=== PATIENT | male | born 1985 | race Caucasian/White ===

== ENCOUNTER 2016-11-07 20:02 | Emergency (ER) | payer OTHER ==
[~2016-11-07] VITALS: Ht 182.8 cm; Wt 104.3 kg
[~2016-11-07 20:02] MED LIST: CEPHALEXIN500 M1 PO; KEFLEX500 MG PO; LOMOTIL 0.025 M1 TA1 PO; MOTRIN800 MG PO; PHENERGAN25 M1 PO
[2016-11-07] MEDS ORDERED: NAPROSYN500 MG PO (21:32)
== END 2016-11-07 21:35 | disposition home or self-care (01) ==
LOC: ED 20:02
DX: S90.32XA Contusion of left foot, initial encounter (principal); X58.XXXA Exposure to other specified factors, initial encounter; Y93.9 Activity, unspecified; Y92.9 Unspecified place or not applicable; Y99.9 Unspecified external cause status

== ENCOUNTER 2017-05-25 22:02 | Emergency (ER) | payer OTHER ==
[~2017-05-25] VITALS: Ht 182.8 cm; Wt 108.9 kg
[~2017-05-25 22:02] MED LIST changes: +NAPROSYN500 MG PO
[2017-05-25] MEDS ORDERED: NAPROSYN500 MG PO (23:31)
== END 2017-05-26 00:05 | disposition home or self-care (01) ==
LOC: ED 22:02
DX: S60.221A Contusion of right hand, initial encounter (principal); S60.211A Contusion of right wrist, initial encounter; Z98.890 Other specified postprocedural states; W22.8XXA Striking against or struck by other objects, initial encounter; Y93.89 Activity, other specified; Y92.89 Other specified places as the place of occurrence of the external cause; Y99.9 Unspecified external cause status

== ENCOUNTER 2018-01-02 20:25 | Emergency (ER) | payer OTHER ==
[~2018-01-02] VITALS: Ht 182.8 cm; Wt 108.9 kg
[2018-01-02] MEDS ORDERED: Motrin,Rufen800 MG PO (22:17)
== END 2018-01-02 22:25 | disposition home or self-care (01) ==
LOC: ED 20:25
DX: M71.562 Other bursitis, not elsewhere classified, left knee (principal)

== ENCOUNTER 2018-03-07 20:57 | Emergency (ER) | payer SELFPAY ==
[~2018-03-07] VITALS: Ht 182.8 cm; Wt 106.6 kg
[~2018-03-07 20:57] MED LIST changes: +Motrin,Rufen800 MG PO
[2018-03-07] MEDS ORDERED: CEPHALEXIN500 M1 PO (22:05)
[2018-03-07] MEDS ORDERED: SEPTDS PO (22:05)
[2018-03-07] MEDS ORDERED: Motrin,Rufen800 MG PO (22:05)
== END 2018-03-07 22:12 | disposition home or self-care (01) ==
LOC: ED 20:57
DX: L02.214 Cutaneous abscess of groin (principal); F17.200 Nicotine dependence, unspecified, uncomplicated; Z79.1 Long term (current) use of non-steroidal anti-inflammatories (NSAID)

== ENCOUNTER 2020-03-20 22:08 | Inpatient (IN) | payer BC ==
[~2020-03-20] VITALS: Ht 182.8 cm; Wt 116.6 kg
[~2020-03-20 22:08] MED LIST changes: +SEPTDS PO
[2020-03-20 22:42] VITALS: BP 172/118
[2020-03-20 23:32] LABS: BASO # 0.1 10*3/uL (0.0-0.1); BASO % 0.4 % (0.0-1.0); EOS # 0.1 10*3/uL (0.0-0.4); EOS % 0.6 % (1.0-4.0); LYMPH % 19.9 % (27.0-41.0); MEAN CORPUSCULAR HGB 29.5 pg (27.0-31.0); MEAN CORPUSCULAR HGB CONC 35.1 g/dl (33.0-37.0); MEAN PLATELET VOLUME 9.5 fl (9.6-12.3); MONO # 1.3 10*3/uL (0.1-1.0); MONO % 8.2 % (3.0-9.0); NEUT # 10.7 10*3/uL (2.3-7.9); NEUT % 70.4 % (47.0-73.0); PLATELET COUNT AUTOMATED 280 10*3/uL (130-400); RED BLOOD COUNT 5.36 10*6/uL (4.50-5.90); RED CELL DISTRI WIDTH 11.9 % (0-14.5); WHITE BLOOD COUNT 15.2 10*3/uL (4.8-10.8)
--- NOTE | 2020-03-20 23:41 | NUR ---
PT NOTES MEDICATION HAS HELPED KNEE PAIN, WELL NAUSEA.
[2020-03-20 23:49] LABS: ALBUMIN 3.9 gm/dl (3.1-4.5); ALKALINE PHOSPHATASE 79 U/L (45-117); BUN 15 mg/dl (7-24); CHLORIDE 110 mmol/L (98-107); CREATININE 1.28 mg/dL (0.70-1.30); POTASSIUM 3.8 mmol/L (3.5-5.1); SGOT/AST 31 IU/L (3-35); SGPT/ALT 80 U/L (12-78); SODIUM 141 mmol/L (136-145); TOTAL PROTEIN 7.4 gm/dL (6.4-8.2)
--- NOTE | 2020-03-21 01:14 | NUR ---
PT DENIES WOUNDS.
[2020-03-21 01:40] VITALS: BP 158/102
--- NOTE | 2020-03-21 01:40 | NUR ---
A 34, admitted to 5E, under the services of ANALY Montero DO with a diagnosis of SEPTIC JOIN L KNEE. Chief complaint is L KNEE PAIN. Patient arrived via stretcher from ER. Monitor applied. Initial assessment completed. Vital signs taken and recorded. ANALY MONTERO DO notified of admission to the unit. Orders received. See assessment for past medical history, medications and allergies. Patient and/or family oriented to unit. [facility] visitation policy reviewed. Clothing/patient valuable form completed. ANKITA CALVIN
[2020-03-21] MEDS ORDERED: ALLOPURINOL300 MG PO (01:51)
--- NOTE | 2020-03-21 02:12 | NUR ---
SPOKE TO REGARDING ADMISSION ORDERS. NEW ORDERS RECEIVED. AWARE OF BP 158/102 MANUALLY. INSTRUCTED TO MONITOR FOR NOW BP DECREASED WITH MEDICATION ADMINISTRATION.
--- NOTE | 2020-03-21 02:49 | NUR ---
IV MORPHINE GIVEN PER PRN ORDER FOR C/O L KNEE PAIN RATED 5/10. WILL MONITOR. CALL LIGHT IN REACH.
[2020-03-21 08:00] VITALS: BP 148/90
--- NOTE | 2020-03-21 08:02 | NUR ---
PHYSICAL THERAPY Pt admitted with L knee pain cellulitis vs septic knee pt is for Ortho Consult. Will follow as appropriately for orders. Sherine George PT
[2020-03-21 12:00] VITALS: BP 135/63
--- NOTE | 2020-03-21 12:06 | NUR ---
Nursing screen and chart review completed. Patient admitted with septic knee and awaiting orthopedic consult. Patient may benefit from OT evaluation if he has difficulties with transfers in ADLs and ADLs. Thank you. Lauren Ruffin OTR/Elaine
--- NOTE | 2020-03-21 15:03 | NUR ---
ATTEMPTED TO TWICE CALL DR. ERICKSON'S OFFICE REGARDING CONSULT WITH NO ANSWER AFTER REMAINING ON HOLD FOR A LENGTHY PERIOD.
[2020-03-21 16:00] VITALS: BP 144/90
--- NOTE | 2020-03-21 16:32 | NUR ---
DR. ERICKSON'S ANSWERING SERVICE NOTIFIED OF CONSULT.
--- NOTE | 2020-03-21 16:38 | NUR ---
DR. ERICKSON NOTIFED OF CONSULT. NEW ORDERS RECIEVED.
--- NOTE | 2020-03-21 19:50 | NUR ---
EARLIER NORCO EFFECTIVE PER PT. WILL CONTINUE TO MONITOR. CALL LIGHT IN REACH.
[2020-03-21 20:00] VITALS: BP 159/100
--- NOTE | 2020-03-21 20:33 | NUR ---
PT STATES NORCO HAS BEEN MOST EFFECTIVE FOR PAIN MANAGEMENT. NOTIFIED OF PATIENT'S PAIN RELIEVED FROM NORCO. WILL REVIEW CHART AND PLACE ORDERS NECESSARY.
--- NOTE | 2020-03-21 21:31 | NUR ---
IV TORADOL GIVEN FOR C/O PAIN IN L KNEE RATED 6/10. WILL MONITOR. CALL LIGHT IN REACH.
--- NOTE | 2020-03-21 22:30 | NUR ---
PT NOW RATING PAIN IN L KNEE 08/13. STATES EARLIER TORADOL HELPED SOME. DENIES ANY OTHER NEEDS AT THIS TIME. VERBALIZES UNDERSTANDING OF K-PAD USE (20 MINUTES ON Q2H). WILL MONITOR.
[2020-03-21 23:32] VITALS: BP 141/87
[2020-03-22] VITALS (7 sets, daily range): BP systolic 142–178; BP diastolic 86–104
--- NOTE | 2020-03-22 01:10 | NUR ---
PT REQUESTED AND RECEIVED PO NORCO PER PRN ORDER FOR C/O PAIN IN L KNEE RATED 6/10. WILL MONITOR. CALL LIGHT IN REACH.
--- NOTE | 2020-03-22 02:05 | NUR ---
EARLIER NORCO APPEARS EFFECTIVE. PT ASLEEP IN BED. NO S/S OF DISTRESS NOTED. WILL MONITOR. CALL LIGHT IN REACH.
--- NOTE | 2020-03-22 05:21 | NUR ---
IV TORADOL GIVEN FOR C/O PAIN IN L KNEE RATED 6/10. WILL MONITOR EFFECTIVENESS. CALL LIGHT IN REACH. BLANKETS PROVIDED PER REQUEST.
--- NOTE | 2020-03-22 08:03 | NUR ---
PRN NORCO WAS GIVEN FOR A PAIN LEVEL OF 6/10 IN THE LEFT KNEE. WILL REASSESS EFFECTIVENESS.
[2020-03-22 08:13] LABS: BASO % 0.4 % (0.0-1.0); EOS # 0.2 10*3/uL (0.0-0.4); EOS % 2.4 % (1.0-4.0); HEMATOCRIT 42.1 % (42.0-52.0); LYMPH # 2.4 10*3/uL (1.3-4.4); LYMPH % 25.5 % (27.0-41.0); MEAN CELL VOLUME 84.5 fl (80.0-94.0); MEAN CORPUSCULAR HGB 29.3 pg (27.0-31.0); MEAN CORPUSCULAR HGB CONC 34.7 g/dl (33.0-37.0); MEAN PLATELET VOLUME 9.5 fl (9.6-12.3); MONO # 0.9 10*3/uL (0.1-1.0); MONO % 9.5 % (3.0-9.0); NEUT # 5.7 10*3/uL (2.3-7.9); NEUT % 61.9 % (47.0-73.0); PLATELET COUNT AUTOMATED 226 10*3/uL (130-400); RED BLOOD COUNT 4.98 10*6/uL (4.50-5.90); RED CELL DISTRI WIDTH 11.9 % (0-14.5); WHITE BLOOD COUNT 9.3 10*3/uL (4.8-10.8)
--- NOTE | 2020-03-22 08:30 | NUR ---
CALLED AND NOTIFIED [facility] OF 9.9. THEY STATED IT WAS OKAY TO GIVE AM DOSE OF [facility].
--- NOTE | 2020-03-22 09:00 | NUR ---
Service Inspector in to talk to patient. Patient states lives at home with his fiance. There are 0 steps in the home. There are 2 outside steps. Physician: Dr. Dom Gurrola Pharmacy: [facility] Home health services: none Patient's level of ADLs: INDEPENDENT Patient has working utilities: yes DME: none Follow-up physician's appointment after d/c: will be made by the hospitalist nurse director upon discharge Does patient want to access PORTAL?: no Discharge plan discussed with patient. He lives at home with his fiance. He is independent in his ADLs and ambulation. Discussed home health care services and he declines. CM will continue to follow for any discharge planning needs. When medically stable he will be discharged to home. He states his fiance will provide transportation on discharge. ERICA LEON
--- NOTE | 2020-03-22 09:03 | NUR ---
PRN NORCO WAS EFFECTIVE. PT IS RESTING COMFORTABLY WITH NO SIGNS OF DISTRESS.
[2020-03-22 11:45] LABS: BODY FLUID WBC 12864 /uL
[2020-03-22 12:03] LABS: BF LYMPHOCYTES 2 %; BF MONOCYTES 18 %; BF NEUTROPHILS 80 %
--- NOTE | 2020-03-22 14:59 | NUR ---
NOTIFIED DR. GONZALEZ OF PT'S INCREASED DIARRHEA. SEE NEW ORDERS. DR. GONZALEZ WAS ALSO NOTIFIED THAT PT'S LEFT KNEE LOOKED MORE SWOLLEN TO THE PATIENT. I NOTIFIED HIM THAT HIS KNEE LOOKS ABOUT THE SAME IT DID THIS MORNING. WILL CONTINUE TO MONITOR PATIENT.
--- NOTE | 2020-03-22 15:10 | NUR ---
PRN ZOFRAN AND NORCO WERE GIVEN FOR NAUSEA AND PAIN. WILL REASSESS EFFECTIVENESS.
--- NOTE | 2020-03-22 16:10 | NUR ---
PRN NORCO AND ZOFRAN WERE EFFECTIVE. PT IS RESTING COMFORTABLY WITH NO SIGNS OF DISTRESS.
--- NOTE | 2020-03-22 21:02 | NUR ---
PO NORCO GIVEN FOR C/O L KNEE PAIN RATED 7/10. WILL MONITOR EFFECTIVENESS. PT BP ELEVATED AT 166/102 MANUALLY. WILL REASSESS AFTER PAIN MEDICATION HAS BEEN GIVEN TIME TO TAKE EFFECT. PT EDUCATED ABOUT CALL LIGHT USE AND S/S TO NOTIFY RN. WILL MONITOR. CALL LIGHT IN REACH.
--- NOTE | 2020-03-22 22:00 | NUR ---
EARLIER NORCO HELPED SOME, BUT PT STILL RATING PAIN 6/10 IN L KNEE/L LOWER LEG. SWELLING NOTED TO L KNEE. ROUND BALL-SHAPED KNOT NOTED BELOW L KNEE. BANDAID REMAINS TO ASPIRATION SITE ABOVE L KNEE. IV TORADOL GIVEN FOR C/O PAIN RATED 6/10. PO ALLOPURINOL ALSO GIVEN PER PRN ORDER FOR POSSIBLE GOUT FLARE UP. URIC ACID 7.8.
--- NOTE | 2020-03-22 22:17 | NUR ---
PT'S BP REMAINS 158/104 MANUALLY FOLLOWING PAIN MEDICATION. NOTIFIED. ALSO MADE AWARE OF ASPIRATION DONE TODAY AND BALL SHAPED KNOT NOTED BELOW L KNEE. ALSO DISCUSSED HX OF MARLINE-SCHLATTER'S DISEASE. DISCUSSED BP TRENDS AND BP NORMALLY ELEVATED W/ PAIN. AWARE OF PT'S C/O CONSTANT PAIN NOW RADIATING DOWN L LOWER LEG. NEW ORDER RECEIVED FOR MORPHINE X 1 DOSE NOW.
--- NOTE | 2020-03-22 22:45 | NUR ---
PT STATES EARLIER TORADOL HELPED SOME, BUT STILL C/O PAIN. BP REMAINS ELEVATED. WILL NOTIFY
--- NOTE | 2020-03-22 22:59 | NUR ---
IV MORPHINE GIVEN PER ONE TIME ORDER FOR C/O L KNEE PAIN RATED 6/10. BP REMAINS ELEVATED AT THIS TIME. 178/102 MANUALLY. WILL REASSESS AFTER MORPHINE HAS TIME TO TAKE EFFECT.
--- NOTE | 2020-03-22 23:45 | NUR ---
EARLIER MORPHINE EFFECTIVE PER PT. WILL MONITOR. CALL LIGHT IN REACH.
[2020-03-23] VITALS: BP 159/96
[2020-03-23 00:10] VITALS: BP 152/88
--- NOTE | 2020-03-23 01:00 | NUR ---
PO NORCO ADMINISTERED PER PRN ORDER FOR C/O PAIN IN L KNEE/L LOWER LEG RATED 4/10. WILL MONITOR EFFECTIVENESS. CALL LIGHT IN REACH.
--- NOTE | 2020-03-23 01:54 | NUR ---
EARLIER NORCO EFFECTIVE PER PT. WILL MONITOR. CALL LIGHT IN REACH.
--- NOTE | 2020-03-23 06:25 | NUR ---
PO NORCO AND IV TORADOL GIVEN FOR PT C/O PAIN IN L KNEE RATED 7/10 AND SWELLING. AREA ABOVE KNEE APPEARS MORE SWOLLEN THIS MORNING. PT STATES LEG IN L LOWER LEG HAS RESOLVED. FRESH ICE PACK PROVIDED. WILL MONITOR EFFECTIVENESS. CALL LIGHT IN REACH.
[2020-03-23 06:44] LABS: BASO % 0.5 % (0.0-1.0); EOS # 0.2 10*3/uL (0.0-0.4); EOS % 2.8 % (1.0-4.0); LYMPH # 2.3 10*3/uL (1.3-4.4); LYMPH % 28.2 % (27.0-41.0); MEAN CELL VOLUME 84.6 fl (80.0-94.0); MEAN CORPUSCULAR HGB 29.3 pg (27.0-31.0); MEAN CORPUSCULAR HGB CONC 34.7 g/dl (33.0-37.0); MEAN PLATELET VOLUME 9.8 fl (9.6-12.3); MONO # 0.6 10*3/uL (0.1-1.0); MONO % 7.6 % (3.0-9.0); NEUT # 4.9 10*3/uL (2.3-7.9); NEUT % 60.5 % (47.0-73.0); PLATELET COUNT AUTOMATED 233 10*3/uL (130-400); RED BLOOD COUNT 5.08 10*6/uL (4.50-5.90); RED CELL DISTRI WIDTH 11.9 % (0-14.5); WHITE BLOOD COUNT 8.2 10*3/uL (4.8-10.8)
[2020-03-23 06:56] LABS: BUN 14 mg/dl (7-24); CREATININE 1.19 mg/dL (0.70-1.30)
[2020-03-23 08:00] VITALS: BP 153/101
--- NOTE | 2020-03-23 09:00 | NUR ---
CM in to see patient. No new needs or request at this time. Discussed home health care services and he declines. CM will continue to follow for any discharge planning needs. When medically stable he will be discharged to home.
--- NOTE | 2020-03-23 09:46 | NUR ---
SPOKE WITH DR ERICKSON. SHE STATES PT OK FOR DISCHARGE PER ID, NO ANTIBIOTICS ARE NEEDED.
[2020-03-23] MEDS ORDERED: ALLOPURINOL300 MG PO (11:23)
--- NOTE | 2020-03-23 12:07 | NUR ---
PT REQUESTED AND WAS MEDICATED WITH NORCO AND TORADOL IV FOR C/O LEFT KNEE PAIN. CALL LIGHT IN REACH. WILL MONITOR
--- NOTE | 2020-03-23 12:40 | NUR ---
MEDICATIONS EFFECTIVE PER PT.
--- NOTE | 2020-03-23 12:45 | NUR ---
Discharge instructions reviewed with patient/family. Patient receptive and verbalizes understanding. Follow-up care arranged. Written instructions given to patient/family. LEVON RODRIGUEZ
[2020-03-24 08:08] LABS: ANTI-STREPTOLYSIN O AB 132.9 IU/mL (0.0-200.0); RHEUMATOID ARTHRITIS FACTOR <10.0 IU/mL (0.0-13.9)
[2020-03-24 13:09] LABS: ANTI-DSDNA ANTIBODIES 1 IU/mL (0-9)
== END 2020-03-23 12:45 | disposition home or self-care (01) | DRG 872 ==
LOC: ED 22:08 → 5E 03-21 00:47 → EDHOLD 03-21 00:47 → 5E 03-21 01:00
PROVIDERS: Hospitalist; Internal Medicine; Orthopaedic Surgery; Physician Assistant; ADMIT Family Medicine; ATTEND Family Medicine
PROC: 0S9D3ZZ Drainage of Left Knee Joint, Percutaneous Approach (ICD-10-PCS; principal; 2020-03-22)
DX: A41.9 Sepsis, unspecified organism (principal); L03.116 Cellulitis of left lower limb; M00.9 Pyogenic arthritis, unspecified; M92.523 Juvenile osteochondrosis of tibia tubercle, bilateral; M92.8 Other specified juvenile osteochondrosis; M1A.9XX0 Chronic gout, unspecified, without tophus (tophi); E87.8 Other disorders of electrolyte and fluid balance, not elsewhere classified; E83.51 Hypocalcemia; F14.10 Cocaine abuse, uncomplicated; F12.90 Cannabis use, unspecified, uncomplicated; R79.82 Elevated C-reactive protein (CRP); Z78.9 Other specified health status; R74.01 Elevation of levels of liver transaminase levels; M71.9 Bursopathy, unspecified; Z79.899 Other long term (current) drug therapy

== ENCOUNTER 2020-04-17 12:01 | Emergency (ER) | payer BC ==
[~2020-04-17] VITALS: Ht 182.8 cm; Wt 113.4 kg
[~2020-04-17 12:01] MED LIST changes: +ALLOPURINOL300 MG PO
[2020-04-17 13:07] LABS: BASO % 0.3 % (0.0-1.0); EOS # 0.1 10*3/uL (0.0-0.4); EOS % 0.8 % (1.0-4.0); HEMATOCRIT 44.1 % (42.0-52.0); LYMPH # 1.6 10*3/uL (1.3-4.4); MEAN CELL VOLUME 81.8 fl (80.0-94.0); MEAN CORPUSCULAR HGB 28.9 pg (27.0-31.0); MEAN CORPUSCULAR HGB CONC 35.4 g/dl (33.0-37.0); MEAN PLATELET VOLUME 9.2 fl (9.6-12.3); MONO # 0.9 10*3/uL (0.1-1.0); MONO % 6.5 % (3.0-9.0); NEUT # 10.6 10*3/uL (2.3-7.9); NEUT % 80.2 % (47.0-73.0); PLATELET COUNT AUTOMATED 263 10*3/uL (130-400); RED BLOOD COUNT 5.39 10*6/uL (4.50-5.90); RED CELL DISTRI WIDTH 11.9 % (0-14.5); WHITE BLOOD COUNT 13.2 10*3/uL (4.8-10.8)
[2020-04-17 13:28] LABS: ALBUMIN 4.1 gm/dl (3.1-4.5); ALKALINE PHOSPHATASE 85 U/L (45-117); BUN 12 mg/dl (7-24); CHLORIDE 109 mmol/L (98-107); CREATININE 1.14 mg/dL (0.70-1.30); POTASSIUM 4.2 mmol/L (3.5-5.1); SGOT/AST 32 IU/L (3-35); SGPT/ALT 80 U/L (12-78); SODIUM 139 mmol/L (136-145); TOTAL PROTEIN 7.2 gm/dL (6.4-8.2); URIC ACID 5.4 mg/dL (3.5-7.2)
== END 2020-04-17 15:14 | disposition home or self-care (01) ==
LOC: ED 12:01
PROVIDERS: Nurse Practitioner Family
DX: M25.462 Effusion, left knee (principal)

== ENCOUNTER → 2020-05-26 | Outpatient (CLI) | payer BC | END | disposition home or self-care (01) | LOC: COVID19 12:37 | PROVIDERS: ATTEND Internal Medicine | DX: U07.1 COVID-19 (principal) ==

== ENCOUNTER → 2020-06-22 | Outpatient (CLI) | payer BC ==
[2020-06-22 13:23] LABS: BASO % 0.2 % (0.0-1.0); HEMATOCRIT 46.7 % (42.0-52.0); LYMPH # 1.4 10*3/uL (1.3-4.4); LYMPH % 12.3 % (27.0-41.0); MEAN CELL VOLUME 82.9 fl (80.0-94.0); MEAN CORPUSCULAR HGB CONC 34.9 g/dl (33.0-37.0); MEAN PLATELET VOLUME 9.5 fl (9.6-12.3); MONO # 0.8 10*3/uL (0.1-1.0); MONO % 6.7 % (3.0-9.0); NEUT # 9.1 10*3/uL (2.3-7.9); NEUT % 80.5 % (47.0-73.0); PLATELET COUNT AUTOMATED 323 10*3/uL (130-400); RED BLOOD COUNT 5.63 10*6/uL (4.50-5.90); RED CELL DISTRI WIDTH 12.8 % (0-14.5); WHITE BLOOD COUNT 11.2 10*3/uL (4.8-10.8)
[2020-06-22 13:54] LABS: FERRITIN 400.2 ng/mL (22.0-322.0)
[2020-06-22 14:00] LABS: ALKALINE PHOSPHATASE 88 U/L (45-117); BUN 16 mg/dl (7-24); CHLORIDE 105 mmol/L (98-107); CREATININE 1.04 mg/dL (0.70-1.30); POTASSIUM 3.8 mmol/L (3.5-5.1); SGOT/AST 19 IU/L (3-35); SGPT/ALT 76 U/L (12-78); SODIUM 137 mmol/L (136-145); TOTAL PROTEIN 8.1 gm/dL (6.4-8.2)
[2020-06-22 14:09] LABS: THYROID STIM HORMONE (HS) 0.415 uIU/ml (0.358-4.75)
[2020-06-23 08:08] LABS: RHEUMATOID ARTHRITIS FACTOR <10.0 IU/mL (0.0-13.9)
[2020-06-23 14:10] LABS: SJOGREN ANTI-SS-A <0.2 AI (0.0-0.9); SJOREN AB, ANTI-SS-B <0.2 AI (0.0-0.9)
[2020-06-23 15:08] LABS: ANTI-SMOOTH MUSCLE ANTIBODY 18 Units (0-19)
[2020-06-24 21:06] LABS: CMV QNT Negative (Negative)
[2020-06-25 00:06] LABS: CCP ANTIBODIES IGG/IGA 14 units (0-19)
== END | disposition home or self-care (01) ==
LOC: LAB 12:52
PROVIDERS: ATTEND Orthopaedic Surgery
DX: M19.90 Unspecified osteoarthritis, unspecified site (principal)

== ENCOUNTER 2022-12-25 15:36 | Inpatient (IN) | payer MEDICAID ==
[~2022-12-25] VITALS: Ht 182.9 cm; Wt 95.9 kg
[2022-12-25 16:00] VITALS: BP 152/107
[2022-12-25 16:22] LABS: BASO # 0.1 10*3/uL (0.0-0.1); BASO % 0.5 % (0.0-1.0); EOS # 0.3 10*3/uL (0.0-0.4); EOS % 3.1 % (1.0-4.0); HEMATOCRIT 43.8 % (42.0-52.0); LYMPH # 2.7 10*3/uL (1.3-4.4); LYMPH % 27.1 % (27.0-41.0); MEAN CELL VOLUME 81.9 fl (80.0-94.0); MEAN CORPUSCULAR HGB 29.9 pg (27.0-31.0); MEAN CORPUSCULAR HGB CONC 36.5 g/dl (33.0-37.0); MEAN PLATELET VOLUME 9.1 fl (9.6-12.3); MONO # 0.8 10*3/uL (0.1-1.0); MONO % 8.1 % (3.0-9.0); NEUT # 6.1 10*3/uL (2.3-7.9); PLATELET COUNT AUTOMATED 320 10*3/uL (130-400); RED BLOOD COUNT 5.35 10*6/uL (4.50-5.90); RED CELL DISTRI WIDTH 11.9 % (0-14.5)
[2022-12-25 16:32] LABS: INTERNATIONAL NORM RATIO 1.1 (2.0-3.5)
[2022-12-25 16:49] LABS: ALKALINE PHOSPHATASE 73 U/L (46-116); BUN 11 mg/dl (9-23); CHLORIDE 110 mmol/L (98-107); LIPASE 27 U/L (12-53); POTASSIUM 3.8 mmol/L (3.4-5.1); SGPT/ALT 18 U/L (10-49); TOTAL PROTEIN 7.5 gm/dL (6.0-8.0)
[2022-12-25 16:57] LABS: ETHYL ALCOHOL < 3.0 mg/dl (<3)
[2022-12-25 20:00] VITALS: BP 166/102
[2022-12-26 04:00] VITALS: BP 124/89
[2022-12-26 05:46] LABS: BUN 12 mg/dl (9-23); CHLORIDE 108 mmol/L (98-107); POTASSIUM 3.6 mmol/L (3.4-5.1)
[2022-12-26 08:00] VITALS: BP 144/90
[2022-12-26 12:00] VITALS: BP 141/89
[2022-12-26 16:00] VITALS: BP 141/89
[2022-12-27] VITALS: BP 140/81
[2022-12-27 06:52] LABS: BUN 14 mg/dl (9-23); CHLORIDE 107 mmol/L (98-107); POTASSIUM 3.7 mmol/L (3.4-5.1)
[2022-12-27 12:00] VITALS: BP 146/98
[2022-12-27 16:00] VITALS: BP 160/96
[2022-12-27 17:03] LABS: URINE AMPHETAMINES Negative (1000ng/ml); URINE BARBITURATES Negative (200ng/ml); URINE BENZODIAZEPINES Negative (200ng/ml); URINE CANNABINOIDS (THC) Negative (50ng/ml); URINE COCAINE Positive (300ng/ml); URINE METHADONE Negative (300ng/ml); URINE OPIATES Negative (300ng/ml); URINE PHENCYCLIDINE Negative (25ng/ml)
[2022-12-27 20:00] VITALS: BP 146/78
[2022-12-28] VITALS: BP 112/56
[2022-12-28 07:28] LABS: BASO # 0.1 10*3/uL (0.0-0.1); BASO % 0.7 % (0.0-1.0); EOS # 0.1 10*3/uL (0.0-0.4); EOS % 1.7 % (1.0-4.0); HEMATOCRIT 42.9 % (42.0-52.0); LYMPH # 2.8 10*3/uL (1.3-4.4); LYMPH % 36.1 % (27.0-41.0); MEAN CELL VOLUME 82.5 fl (80.0-94.0); MEAN CORPUSCULAR HGB 29.2 pg (27.0-31.0); MEAN CORPUSCULAR HGB CONC 35.4 g/dl (33.0-37.0); MEAN PLATELET VOLUME 9.5 fl (9.6-12.3); MONO # 0.5 10*3/uL (0.1-1.0); MONO % 6.9 % (3.0-9.0); NEUT # 4.2 10*3/uL (2.3-7.9); NEUT % 54.3 % (47.0-73.0); PLATELET COUNT AUTOMATED 271 10*3/uL (130-400); RED CELL DISTRI WIDTH 11.9 % (0-14.5); WHITE BLOOD COUNT 7.7 10*3/uL (4.8-10.8)
[2022-12-28 08:00] VITALS: BP 105/57
[2022-12-28 08:00] LABS: ALKALINE PHOSPHATASE 63 U/L (46-116); BUN 15 mg/dl (9-23); CHLORIDE 105 mmol/L (98-107); POTASSIUM 3.6 mmol/L (3.4-5.1); SGPT/ALT 14 U/L (10-49); TOTAL PROTEIN 6.6 gm/dL (6.0-8.0)
[2022-12-28 12:00] VITALS: BP 124/82
== END 2022-12-28 11:45 | disposition home or self-care (01) | DRG 773 ==
LOC: ICCU 15:36 → 4E 12-27 07:13
PROVIDERS: Student in an Organized Health Care Education/Training Program; ADMIT Internal Medicine; ATTEND Internal Medicine
DX: F11.93 Opioid use, unspecified with withdrawal (principal); I10 Essential (primary) hypertension; M10.9 Gout, unspecified; F14.10 Cocaine abuse, uncomplicated; E87.8 Other disorders of electrolyte and fluid balance, not elsewhere classified; R73.9 Hyperglycemia, unspecified; F17.210 Nicotine dependence, cigarettes, uncomplicated

== ENCOUNTER → 2023-05-21 | Outpatient (CLI) | payer OTHER ==
[2023-05-21 15:47] LABS: BASO % 0.4 % (0.0-1.0); EOS # 0.2 10*3/uL (0.0-0.4); EOS % 2.5 % (1.0-4.0); HEMATOCRIT 43.7 % (42.0-52.0); LYMPH # 2.4 10*3/uL (1.3-4.4); LYMPH % 31.5 % (27.0-41.0); MEAN CELL VOLUME 84.5 fl (80.0-94.0); MEAN CORPUSCULAR HGB 28.8 pg (27.0-31.0); MEAN CORPUSCULAR HGB CONC 34.1 g/dl (33.0-37.0); MEAN PLATELET VOLUME 9.3 fl (9.6-12.3); MONO # 0.6 10*3/uL (0.1-1.0); MONO % 7.7 % (3.0-9.0); NEUT # 4.3 10*3/uL (2.3-7.9); NEUT % 57.6 % (47.0-73.0); PLATELET COUNT AUTOMATED 264 10*3/uL (130-400); RED BLOOD COUNT 5.17 10*6/uL (4.50-5.90); RED CELL DISTRI WIDTH 12.1 % (0-14.5); WHITE BLOOD COUNT 7.5 10*3/uL (4.8-10.8)
[2023-05-21 16:18] LABS: ALKALINE PHOSPHATASE 73 U/L (46-116); BUN 10 mg/dl (9-23); CHLORIDE 105 mmol/L (98-107); POTASSIUM 3.9 mmol/L (3.4-5.1); SGPT/ALT 49 U/L (5-49)
[2023-05-22 06:09] LABS: HBSAG Negative (Negative); HEP B CORE AB, IGM Negative (Negative); HEPATITIS C ANTIBODY Non Reactive (Non Reactive)
== END | disposition home or self-care (01) ==
LOC: LAB 15:27
PROVIDERS: ATTEND Family Medicine Addiction Medicine
DX: F11.20 Opioid dependence, uncomplicated (principal)

== ENCOUNTER 2023-10-18 22:16 | Emergency (ER) | payer OTHER ==
[~2023-10-18] VITALS: Ht 182.8 cm; Wt 104.3 kg
[2023-10-18] MEDS ORDERED: LORazepam 1 MG TAB PO ONE (23:25)
== END 2023-10-18 23:59 | disposition home or self-care (01) ==
LOC: ED 22:16
DX: M79.10 Myalgia, unspecified site (principal); F41.9 Anxiety disorder, unspecified; T40.415A Adverse effect of fentanyl or fentanyl analogs, initial encounter; Z98.890 Other specified postprocedural states; Y92.89 Other specified places as the place of occurrence of the external cause

== ENCOUNTER 2023-11-16 13:50 | Emergency (ER) | payer OTHER ==
[~2023-11-16] VITALS: Ht 182.8 cm; Wt 104.3 kg
[2023-11-16] MEDS ORDERED: FLUORESCEIN SODIUM 1 MG STRIP OPH ONE (15:05)
[2023-11-16] MEDS ORDERED: Tetracaine Hydrochloride 0.5% 4 ML BOT OPH ONE (15:05)
[2023-11-16] MEDS ORDERED: OFLOXACIN 10 ML10 M2 OD (15:18)
[2023-11-16] MEDS ORDERED: OFLOXACIN 0.3% 5 ML BOTTLE OPH ONE (15:20)
== END 2023-11-16 15:33 | disposition home or self-care (01) ==
LOC: ED 13:50
DX: H18.821 Corneal disorder due to contact lens, right eye (principal); I10 Essential (primary) hypertension; F41.9 Anxiety disorder, unspecified; F14.10 Cocaine abuse, uncomplicated; M10.9 Gout, unspecified; M19.90 Unspecified osteoarthritis, unspecified site; F12.90 Cannabis use, unspecified, uncomplicated; F11.10 Opioid abuse, uncomplicated; F17.200 Nicotine dependence, unspecified, uncomplicated

== ENCOUNTER 2023-11-18 12:09 | Emergency (ER) | payer OTHER ==
[~2023-11-18] VITALS: Ht 182.8 cm; Wt 104.3 kg
[~2023-11-18 12:09] MED LIST changes: +OFLOXACIN 10 ML10 M2 OD
[2023-11-18] MEDS ORDERED: Metoclopramide Hydrochloride 10 MG/2 ML AMP IV ONE (12:25)
[2023-11-18] MEDS ORDERED: Ketorolac Tromethamine 15 MG/ML VIAL IV ONE (12:25)
[2023-11-18] MEDS ORDERED: diphenhydrAMINE hydrochloride 50 MG/ML VIAL IV ONE (12:25)
[2023-11-18] MEDS ORDERED: Lactated Ringer's Solution 1,000 ML IV SCH (12:25)
[2023-11-18 12:38] LABS: BASO % 0.3 % (0.0-1.0); EOS # 0.1 10*3/uL (0.0-0.4); EOS % 0.9 % (1.0-4.0); HEMATOCRIT 45.5 % (42.0-52.0); LYMPH % 16.2 % (27.0-41.0); MEAN CELL VOLUME 83.6 fl (80.0-94.0); MEAN CORPUSCULAR HGB 29.6 pg (27.0-31.0); MEAN CORPUSCULAR HGB CONC 35.4 g/dl (33.0-37.0); MEAN PLATELET VOLUME 9.3 fl (9.6-12.3); MONO # 0.6 10*3/uL (0.1-1.0); MONO % 4.6 % (3.0-9.0); NEUT # 9.7 10*3/uL (2.3-7.9); NEUT % 77.8 % (47.0-73.0); PLATELET COUNT AUTOMATED 311 10*3/uL (130-400); RED BLOOD COUNT 5.44 10*6/uL (4.50-5.90); WHITE BLOOD COUNT 12.5 10*3/uL (4.8-10.8)
[2023-11-18 13:00] LABS: ALKALINE PHOSPHATASE 86 U/L (46-116); BUN 12 mg/dl (9-23); CHLORIDE 108 mmol/L (98-107); LIPASE 22 U/L (12-53); POTASSIUM 3.7 mmol/L (3.4-5.1); SGPT/ALT 45 U/L (5-49); TOTAL PROTEIN 7.5 gm/dL (6.0-8.0)
[2023-11-18 15:43] LABS: BILIRUBIN Negative (Negative); BLOOD 3+ (Negative); CLARITY Clear (Clear); COLOR Dark Yellow (Yellow); GLUCOSE Negative (Negative); KETONE Trace (Negative); LEUKO ESTERASE Trace (Negative); NITRITE Negative (Negative)
[2023-11-18 15:55] LABS: BACTERIA 1+; MUCOUS 2+; RBC 51-100 rbc/hpf (0-2)
[2023-11-18] MEDS ORDERED: TYLENOL EXTRA500 MG PO (16:18)
[2023-11-18] MEDS ORDERED: FLOMAX0.4 MG PO (16:18)
[2023-11-18] MEDS ORDERED: Motrin,Rufen400 MG PO (16:18)
[2023-11-18] MEDS ORDERED: Ondansetron4 MG PO (16:18)
== END 2023-11-18 16:33 | disposition home or self-care (01) ==
LOC: ED 12:09
PROVIDERS: Emergency Medicine
DX: N23 Unspecified renal colic (principal); I10 Essential (primary) hypertension; F41.9 Anxiety disorder, unspecified; F14.10 Cocaine abuse, uncomplicated; M10.9 Gout, unspecified; F11.10 Opioid abuse, uncomplicated; F17.200 Nicotine dependence, unspecified, uncomplicated; F12.90 Cannabis use, unspecified, uncomplicated; Z98.890 Other specified postprocedural states

== ENCOUNTER 2024-09-13 23:58 | Emergency (ER) | payer OTHER ==
[~2024-09-13] VITALS: Ht 182.8 cm; Wt 102.1 kg
[~2024-09-13 23:58] MED LIST changes: +FLOMAX0.4 MG PO; +Motrin,Rufen400 MG PO; +Ondansetron4 MG PO; +TYLENOL EXTRA500 MG PO
[2024-09-14] MEDS ORDERED: methylPREDNISolone sod succ 125 MG VIAL IV ONE (00:05)
[2024-09-14] MEDS ORDERED: FAMOTIDINE 50 ML IV ONE (00:05)
[2024-09-14] MEDS ORDERED: diphenhydrAMINE hydrochloride 50 MG/ML VIAL IV ONE (00:05)
[2024-09-14] MEDS ORDERED: TRANEXAMIC ACID IN NACL,ISO-OS 100 ML IV ONE ×2 (01:30→02:05)
== END 2024-09-14 03:25 | disposition home or self-care (01) ==
LOC: ED 23:58
DX: T78.1XXA Other adverse food reactions, not elsewhere classified, initial encounter (principal); R22.0 Localized swelling, mass and lump, head; F17.200 Nicotine dependence, unspecified, uncomplicated; Z79.899 Other long term (current) drug therapy; Z98.890 Other specified postprocedural states; X58.XXXA Exposure to other specified factors, initial encounter